=== PATIENT | female | born 1995 | race Caucasian/White ===

== ENCOUNTER 2016-09-19 04:20 | Emergency (ER) | payer OTHER, BC ==
[2016-09-19 04:31] VITALS: BP 112/78
[2016-09-19] MEDS ORDERED: Ondansetron 4 MG/2 ML SDV IVPUSH ONE (04:43)
[2016-09-19] MEDS ORDERED: Sodium Chloride 0.9% 10 ML Syringe FLUSH PRN (04:43)
[2016-09-19] MEDS ORDERED: Ketorolac 30 MG/ML SDV IVPUSH ONE (04:44)
[2016-09-19] MEDS ORDERED: Sodium Chloride 0.9% 1,000 ML IV SCH (04:45)
--- NOTE | 2016-09-19 04:50 | EDM.PDOC ---
ED HPI Trauma - General Chief Complaint: Lower Extremity Injury/Pain Stated Complaint: LEFT HIP PAIN Time Seen by Provider: 09/19/16 04:37 Source: Reports: Patient History Limitations: Reports: No limitations - History of Present Illness INITIAL COMMENTS - FREE TEXT/NARRATIVE: The patient presents with left lower abdominal pain and left flank pain. This started yesterday at 4pm. The pain is sharp and constant. She has some nausea but no vomiting. She has no fever, chills, cough, congestion, runny nose, chest pain, shortness of breath. She first thought this was in her hip but on exam the pain is in the left lower quadrant and also the left flank. She has no dysuria or diarrhea. She currently is having her period. Occurred When: yesterday (4pm) Occurred Where: other ([place] the mall when it started) Method of Injury: unknown Severity: severe Pain/Injury Location: Reports: abdomen (LLQ and left flank) Consciousness: Reports: no loss of consciousness Associated Symptoms: Reports: abdominal pain (LLQ), nausea/vomiting. Denies: chest pain, headache, lightheadedness, muscle spasms, shortness of breath Allergies/ADRs: Allergies Penicillins Allergy (Verified 09/19/16 04:31) Hives Home Medications: Ambulatory Orders Control. 09/19/16 LORazepam [Ativan] 09/19/16 Past Medical History - Past Health History Medical/Surgical History: Denies Medical/Surgical History Social & Family History - Tobacco Use Smoking Status *Q: Unknown Ever Smoked Second Hand Smoke Exposure: No - Recreational Drug Use Recreational Drug Use: No - Living Situation & Occupation Living situation: Reports: alone, single Occupation: employed ([employer]) Review of Systems - Review of Systems Review Of Systems: See Below Constitutional: Reports: no symptoms Eyes: Reports: no symptoms Ears: Reports: no symptoms Nose: Reports: no symptoms Mouth/Throat: Reports: no symptoms Respiratory: Reports: No Symptoms Cardiovascular: Reports: no symptoms GI/Abdominal: Reports: Abdominal pain (LLQ), Nausea. Denies: Diarrhea, Vomiting Genitourinary: Reports: no symptoms Musculoskeletal: Reports: no symptoms Skin: Reports: no symptoms Trauma Exam - Physical Exam Exam: See Below Exam Limited By: No limitations General Appearance: Reports: alert, no apparent distress Head: Reports: atraumatic, normocephalic Ears: Reports: normal external exam Nose: Reports: normal inspection Respiratory Exam: Reports: no respiratory distress, lungs clear, normal breath sounds Cardiovascular: Reports: regular rate, rhythm, no edema, no murmur GI/Abdominal: Reports: soft, no organomegaly, tenderness (Mild pain upon palpation to the left lower abdomen) Extremities: Reports: no evidence of injury Course - Vital Signs Last Recorded V/S: Last Vital Signs Temp 98.5 F 09/19/16 04:27 Pulse 88 09/19/16 04:27 Resp 18 09/19/16 04:27 BP 112/78 09/19/16 04:27 Pulse Ox 100 09/19/16 04:27 - Orders/Labs/Meds Orders: Active Orders 24 hr Category Date Time Status Peripheral IV Care [RC] . DIRECTED Care 09/19/16 04:44 Active Sodium Chloride 0.9% [Normal Saline] 1,000 ml Med 09/19/16 04:45 Active IV ASDIRECTED Sodium Chloride 0.9% [Saline Flush] Med 09/19/16 04:43 Active 10 ml FLUSH ASDIRECTED PRN ED Antiemetic Medication Reflex [OM.PC] Stat Oth 09/19/16 04:43 Ordered Peripheral IV Insertion Adult [OM.PC] Stat Oth 09/19/16 04:43 Ordered Medication Orders Sodium Chloride (Normal Saline) 1,000 mls @ 125 mls/hr IV ASDIRECTED INGRID Last Admin: 09/19/16 04:58 Dose: 125 mls/hr Sodium Chloride (Saline Flush) 10 ml FLUSH ASDIRECTED PRN PRN Reason: Keep Vein Open Last Admin: 09/19/16 04:58 Dose: 10 ml Labs: Laboratory Tests 09/19/16 09/19/16 09/19/16 Range/Units 05:00 05:00 05:00 WBC 9.48 (3.98-10.04) K/mm3 RBC 4.98 (3.98-5.22) M/mm3 Hgb 14.7 (11.2-15.7) gm/L Hct 44.5 (34.1-44.9) % MCV 89.4 (79.4-94.8) fl MCH 29.5 (25.6-32.2) pg MCHC 33.0 (32.2-35.5) g/dl RDW Std Deviation 41.7 (36.4-46.3) fL Plt Count 228 (182-369) K/mm3 MPV 10.7 (9.4-12.3) fl Neut % (Auto) 58.7 (34.0-71.1) % Lymph % (Auto) 30.5 (19.3-51.7) % [place] % (Auto) 7.3 (4.7-12.5) % Eos % (Auto) 2.8 (0.7-5.8) Baso % (Auto) 0.6 (0.1-1.2) % Neut # (Auto) 5.56 (1.56-6.13) K/mm3 Lymph # (Auto) 2.89 (1.18-3.74) K/mm3 [place] # (Auto) 0.69 H (0.24-0.36) K/mm3 Eos # (Auto) 0.27 (0.04-0.36) K/mm3 Baso # (Auto) 0.06 (0.01-0.08) K/mm3 Sodium 140 (136-145) mEq/L Potassium 3.7 (3.5-5.1) mEq/L Chloride 104 (98-107) mEq/L Carbon Dioxide 25 (21-32) mEq/L Anion Gap 14.7 (5-15) BUN 9 (7-18) mg/dL Creatinine 0.7 (0.55-1.02) mg/dL Est Cr Clr Drug Dosing TNP Estimated GFR (MDRD) > 60 (>60) mL/min BUN/Creatinine Ratio 12.9 L (14-18) Glucose 93 (74-106) mg/dL Calcium 9.1 (8.5-10.1) mg/dL Total Bilirubin 0.6 (0.2-1.0) mg/dL AST 11 L (15-37) U/L ALT 22 (14-59) U/L Alkaline Phosphatase 68 (46-116) U/L Total Protein 7.5 (6.4-8.2) g/dl Albumin 4.0 (3.4-5.0) g/dl Globulin 3.5 gm/dL Albumin/Globulin Ratio 1.1 (1-2) Lipase 77 (73-393) U/L HCG, Qual Negative (NEGATIVE) Urine Color (Yellow) Urine Appearance (Clear) Urine pH (5.0-8.0) Ur Specific [place] (1.005-1.030) Urine Protein (Negative) Urine Glucose (UA) (Negative) Urine Ketones (Negative) Urine Occult Blood (Negative) Urine Nitrite (Negative) Urine Bilirubin (Negative) Urine Urobilinogen (0.2-1.0) Ur Leukocyte Esterase (Negative) Urine RBC (0-5) /hpf Urine WBC (0-5) /hpf Ur Epithelial Cells (0-5) /hpf Urine Bacteria (FEW) /hpf Urine Mucus (FEW) /hpf 09/19/16 Range/Units 05:00 WBC (3.98-10.04) K/mm3 RBC (3.98-5.22) M/mm3 Hgb (11.2-15.7) gm/L Hct (34.1-44.9) % MCV (79.4-94.8) fl MCH (25.6-32.2) pg MCHC (32.2-35.5) g/dl RDW Std Deviation (36.4-46.3) fL Plt Count (182-369) K/mm3 MPV (9.4-12.3) fl Neut % (Auto) (34.0-71.1) % Lymph % (Auto) (19.3-51.7) % [place] % (Auto) (4.7-12.5) % Eos % (Auto) (0.7-5.8) Baso % (Auto) (0.1-1.2) % Neut # (Auto) (1.56-6.13) K/mm3 Lymph # (Auto) (1.18-3.74) K/mm3 [place] # (Auto) (0.24-0.36) K/mm3 Eos # (Auto) (0.04-0.36) K/mm3 Baso # (Auto) (0.01-0.08) K/mm3 Sodium (136-145) mEq/L Potassium (3.5-5.1) mEq/L Chloride (98-107) mEq/L Carbon Dioxide (21-32) mEq/L Anion Gap (5-15) BUN (7-18) mg/dL Creatinine (0.55-1.02) mg/dL Est Cr Clr Drug Dosing Estimated GFR (MDRD) (>60) mL/min BUN/Creatinine Ratio (14-18) Glucose (74-106) mg/dL Calcium (8.5-10.1) mg/dL Total Bilirubin (0.2-1.0) mg/dL AST (15-37) U/L ALT (14-59) U/L Alkaline Phosphatase (46-116) U/L Total Protein (6.4-8.2) g/dl Albumin (3.4-5.0) g/dl Globulin gm/dL Albumin/Globulin Ratio (1-2) Lipase (73-393) U/L HCG, Qual (NEGATIVE) Urine Color Yellow (Yellow) Urine Appearance Cloudy H (Clear) Urine pH 6.0 (5.0-8.0) Ur Specific [place] > or = 1.030 (1.005-1.030) Urine Protein 1+ H (Negative) Urine Glucose (UA) Negative (Negative) Urine Ketones Negative (Negative) Urine Occult Blood 3+ H (Negative) Urine Nitrite Negative (Negative) Urine Bilirubin Negative (Negative) Urine Urobilinogen 0.2 (0.2-1.0) Ur Leukocyte Esterase 1+ H (Negative) Urine RBC 10-20 H (0-5) /hpf Urine WBC 10-20 H (0-5) /hpf Ur Epithelial Cells 10-20 H (0-5) /hpf Urine Bacteria Many H (FEW) /hpf Urine Mucus Moderate H (FEW) /hpf Meds: Medications Generic Name Dose Route Start Last Admin Trade Name Freq PRN Reason Stop Dose Admin Sodium Chloride 1,000 mls @ 125 mls/hr 09/19/16 04:45 09/19/16 04:58 Normal Saline IV 125 mls/hr ASDIRECTED INGRID Administration Sodium Chloride 10 ml 09/19/16 04:43 09/19/16 04:58 Saline Flush FLUSH 10 ml ASDIRECTED PRN Administration Keep Vein Open Discontinued Medications Generic Name Dose Route Start Last Admin Trade Name Freq PRN Reason Stop Dose Admin Ketorolac Tromethamine 30 mg 09/19/16 04:44 09/19/16 04:58 Toradol IVPUSH 09/19/16 04:45 30 mg ONETIME ONE Administration Ondansetron HCl 4 mg 09/19/16 04:43 09/19/16 04:58 Zofran IVPUSH 09/19/16 04:44 4 mg ONETIME ONE Administration - Re-Assessments/Exams Free Text/Narrative Re-Assessment/Exam: 09/19/16 04:50 I ordered an IV NS at 125mL/hr, zofran 4mg IV, toradol 30mg IV, labs, UA and CT of her abdomen to look for kidney stone. 09/19/16 06:20 Her CBC and CMP look good. Her UA shows no UTI. Her CT shows mild inflammatory change with adjacent bowel wall thickening seen within a portion of the descending colon. Differential includes mild focal colitis or epiploic appendagitis. Findings do not appear to represent diverticulitis. Small amount of free fluid within the pelvis which is likely physiologic. She does not need antibiotics. I do not think this is colitis. I will give her some hydrocodone for pain. Departure - Departure Time of Disposition: 06:25 Disposition: Home, Self-Care 01 Condition: good Clinical Impression: Epiploic appendagitis Referrals: Radha Vera PA [Physician [employer] Therapist] - 1 Week Forms: ED Department Discharge Additional Instructions: Take the hydrocodone as needed for pain. Please return if you are worse such as more pain, nausea, vomiting, fever or chills. Follow up with Radha Vera in 1 week. - My Orders Last 24 Hours: My Active Orders 09/19/16 04:43 Sodium Chloride 0.9% [Saline Flush] 10 ml FLUSH ASDIRECTED PRN ED Antiemetic Medication Reflex [OM.PC] Stat Peripheral IV Insertion Adult [OM.PC] Stat 09/19/16 04:44 Peripheral IV Care [RC] . DIRECTED 09/19/16 04:45 Sodium Chloride 0.9% [Normal Saline] 1,000 ml IV ASDIRECTED - Assessment/Plan Last 24 Hours: My Active Orders 09/19/16 04:43 Sodium Chloride 0.9% [Saline Flush] 10 ml FLUSH ASDIRECTED PRN ED Antiemetic Medication Reflex [OM.PC] Stat Peripheral IV Insertion Adult [OM.PC] Stat 09/19/16 04:44 Peripheral IV Care [RC] . DIRECTED 09/19/16 04:45 Sodium Chloride 0.9% [Normal Saline] 1,000 ml IV ASDIRECTED
--- NOTE | 2016-09-19 06:04 | CT ---
CT abdomen and pelvis Technique: Multiple axial sections were obtained from above the dome of the diaphragm inferiorly through the pubic symphysis. Intravenous contrast was not utilized. Study has been performed as a ureteral stone protocol. Findings: Kidneys showed no abnormal calcifications. No ureteral dilatation is seen. No ureteral stone is identified. No bladder calculi are seen. Small amount of free fluid is seen within the pelvis which is likely physiologic. Appendix shows some increased density either due to bowel material or appendicolith. Appendix is normal in size. Visualized lung bases are clear. Liver and spleen have a normal noncontrast CT appearance. Adrenal glands show no nodule. Pancreas is within normal limits. Aorta shows no aneurysmal dilatation. Gallbladder shows no calcified gallstones. Aorta shows no aneurysmal dilatation. No retroperitoneal adenopathy or mesenteric abnormalities are seen. Mild inflammatory change is seen adjacent to the descending colon. No diverticuli are seen in this area with some some adjacent bowel wall thickening being seen within this area of inflammation. Bone window settings were reviewed which appear within normal limits for the patient's age. Impression: 1. Mild inflammatory change with adjacent bowel wall thickening seen within a portion of the descending colon. Differential includes mild focal colitis or epiploic appendagitis. Findings do not appear to represent diverticulitis. 2. Small amount of free fluid within the pelvis which is likely physiologic. 3. Other incidental findings as noted above. Diagnostic code #3
== END 2016-09-19 06:50 | disposition home or self-care (01) ==
LOC: JD.ED 04:20
DX: K63.89 Other specified diseases of intestine (principal); Z88.0 Allergy status to penicillin
CPT/HCPCS: 36415; 74176; 80053; 81001; 83690; 84703; 85025; 96361; 96374; 96375; 99284; J1885; J2405; J7040; J7050